=== PATIENT | male | born 1990 | race Caucasian/White ===

== ENCOUNTER 2016-12-21 22:44 | Emergency (ER) | payer OTHER ==
[~2016-12-21] VITALS: Ht 175.3 cm; Wt 59.0 kg
[2016-12-21 23:19] VITALS: BP 121/75
== END 2016-12-21 23:59 | disposition home or self-care (01) ==
LOC: EMS 22:45
DX: H00.014 Hordeolum externum left upper eyelid (principal)
CPT/HCPCS: 99283

== ENCOUNTER 2018-02-12 18:21 | Emergency (ER) | payer OTHER ==
[~2018-02-12] VITALS: Ht 175.3 cm; Wt 68.2 kg
[2018-02-12 20:23] VITALS: BP 136/77
== END 2018-02-12 20:31 | disposition home or self-care (01) ==
LOC: EMS 18:22
DX: H57.8 Other specified disorders of eye and adnexa (principal)
CPT/HCPCS: 99282